=== PATIENT | male | born 2000 | race Caucasian/White ===

== ENCOUNTER 2021-06-11 08:35 | Outpatient (CLI) | payer OTHER ==
--- NOTE | 2021-06-11 13:52 | MRI Report ---
PROCEDURE: Knee LT W/O INDICATIONS: TRAUMA TO KNEE TECHNIQUE: Noncontrast sagittal PD fast spin echo and T2 fast spin echo with fat saturation, sagittal 3-D gradie nt sequence with fat saturation; coronal T1 spin echo and PD fast spin echo with fat saturation, and axial PD fast spin echo with fat saturation through the knee. COMPARISON: None. FINDINGS: Image quality: Excellent. Menisci: The medial and lateral menisci demonstrate normal morphology and internal signal. The meni scal root ligaments appear intact. Cruciate ligaments: There is full-thickness rupture of anterior cruciate ligament. PCL is intact. Medial structures: Low-grade MCL sprain is seen with thickened ligament and surrounding soft tissue e leah. The posterior oblique ligament, semimembranosus tendon insertions, and oblique popliteal ligam ent, and meniscocapsular junction appear intact. Visualized portions of the pes anserinus tendons ap pear normal. No abnormal bursal fluid. Lateral structures: The lateral collateral ligament, long and short heads of the biceps femoris tend on appear thickened with surrounding soft tissue edema. The popliteus tendon appears normal; the popl iteofibular ligament appears intact. The posterosuperior and anteroinferior popliteomeniscal fascicl es appear intact. The arcuate and fabellofibular ligaments appear intact, around the lateral inferio r geniculate artery. Iliotibial band appears normal. Anterior structures: The quadriceps and patellar tendons appear intact. Patellar alignment is marta l. No femoral trochlear dysplasia or ventral trochlear prominence. No edema in the infrapatellar fa t pad. Bones and cartilage: Marrow edema involving weightbearing portion of lateral femoral condyle and post erior portion of proximal tibia extending to posterior aspect of lateral tibial plateau without discr ete fracture line. Articulating cartilages are grossly intact. Joint space: There is moderate joint effusion. No Pagan?s cyst. Normal appearing synovial plicae a re incidentally noted. IMPRESSION: 1. Full-thickness rupture of ACL near its mid to distal portion. PCL is intact. 2. Low-grade MCL sprain. Low to moderate grade LCL sprain with overlying biceps femoris tendinosis. 3. No gross focal meniscal tear. 4. Bony contusion involving lateral femoral tibial compartment as above. No fracture or dislocation. Moderate joint effusion, no gross loose body. Reviewed by: Jaison Becerra MD on 06/11/2021 1:50 PM PDT Approved by: Jaison Becerra MD on 06/11/2021 1:50 PM PDT Station ID: [id number]
== END 2021-06-11 08:36 | disposition home or self-care (01) ==
LOC: DI 08:35
DX: S83.512A Sprain of anterior cruciate ligament of left knee, initial encounter (principal); S83.412A Sprain of medial collateral ligament of left knee, initial encounter; S83.422A Sprain of lateral collateral ligament of left knee, initial encounter; S70.12XA Contusion of left thigh, initial encounter; S80.12XA Contusion of left lower leg, initial encounter

== ENCOUNTER 2022-07-22 12:52 | Emergency (ER) | payer OTHER ==
[2022-07-22 13:05] VITALS: BP 142/79
[2022-07-22] MEDS ORDERED: lidocaine 1% 20 ML MDV SUBQ ONE (13:08)
--- NOTE | 2022-07-22 13:44 | ED Physician Documentation ---
PD HPI LOWER EXT INJURY - Stated complaint Stated Complaint: L TOE PX - Chief complaint Chief Complaint: Ext Problem - History obtained from History obtained from: Patient - Additional information Additional information: Patient is a 21-year-old male, active [employer] presenting for evaluation of left great toe pain. He has had an ingrown toenail that is occasionally caused him pain for the last 6 or 7 months. However this recent episode started 2 to 3 days ago and he has noticed redness and swelling to the lateral aspect of the toenail. He denies any drainage.He denies trauma.He is not diabetic and does not believe it is related to his work boots.He has been on antibiotics in the past but not in months. He has also tried soaks in the past but again not in months. These have helped when he has been doing them. Review of Systems Constitutional: denies: Fever Nose: denies: Congestion Cardiac: denies: Chest pain / pressure Respiratory: denies: Dyspnea GI: denies: Abdominal Pain Musculoskeletal: reports: Extremity pain Neurologic: denies: Headache PD PAST MEDICAL HISTORY - Present Medications Home Medications: Ambulatory Orders Medication Instructions Recorded Confirmed cephALEXin [Keflex] 500 mg PO Q6H #28 cap 07/22/22 - Allergies Allergies/Adverse Reactions: Allergies Allergy/AdvReac Type Severity Reaction Status Date / Time No Known Drug Allergies Allergy Verified 07/22/22 13:05 PD ED PE NORMAL - General General: Alert and oriented X 3, No acute distress, Well developed/nourished - HEENT HEENT: Atraumatic - Respiratory Respiratory: No respiratory distress - Derm Derm: Warm and dry - Extremities Extremities: Other (Mild erythema and tenderness to lateral Aspect of left great toenail, no fluctuance, no signs of involvement of nailbed) Results - Vitals Vitals: Vital Signs - 24 hr 07/22/22 13:02 Temperature 36.0 C L Heart Rate 85 Respiratory 16 Rate Blood Pressure 142/79 H O2 Saturation 99 Oxygen O2 Source Room air PD MEDICAL DECISION MAKING - ED course ED course: Patient with paronychia to the left great toe. No signs of abscess. Discussed treatment options for ingrown toenail with infection. He is agreeable to plan for soaks as well as p.o. antibiotics. [facility] Patient understands concerning symptoms to return for. Departure - Departure Disposition: 01 Home, Self Care Clinical Impression: Paronychia due to ingrown nail Condition: Stable Instructions: ED Toenail Ingrown Infec Abx Onl Prescriptions: cephALEXin [Keflex] 500 mg PO Q6H #28 cap Comments: You were evaluated for an infection to your left great toe Which appears related to an ingrown toenail. I am going to start You on an antibiotic to be taken for the next week. I would also recommend soaking your foot in warm water 3-4 times a day for 15 minutes. [facility]. Please return to the ER if you have any worsening symptoms. I have sent a prescription to [facility] in [place]. Discharge Date/Time: 07/22/22 13:56
== END 2022-07-22 13:56 | disposition home or self-care (01) ==
LOC: ED 12:52
DX: L03.032 Cellulitis of left toe (principal); L60.0 Ingrowing nail
CPT/HCPCS: 96372; 99282; 99283

== ENCOUNTER 2022-08-05 15:26 | Emergency (ER) | payer OTHER ==
[2022-08-05 15:37] VITALS: BP 125/71
== END 2022-08-05 17:25 | disposition left against medical advice (07) ==
LOC: ED 15:26
DX: Z53.21 Procedure and treatment not carried out due to patient leaving prior to being seen by health care provider (principal)